=== PATIENT | female | born 1950 | race African-American/Black ===

== ENCOUNTER 2017-12-08 08:31 | Emergency (ER) | payer OTHER, MEDICAID ==
[~2017-12-08] VITALS: Ht 175.3 cm; Wt 80.0 kg
[2017-12-08] MEDS ORDERED: BENA20TA3 PO (09:13)
[2017-12-08] MEDS ORDERED: POTA10CA42 PO (09:13)
[2017-12-08] MEDS ORDERED: FAMO20TA8 PO (09:13)
[2017-12-08 09:59] LABS: BASOPHILS % 0.4 % (0.0-2.0); EOSINOPHILS % 1.3 % (0.0-5.0); HEMATOCRIT. 33.6 % (36.0-48.0); HEMOGLOBIN. 11.1 g/dL (12.0-16.0); LYMPHOCYTES % 20.4 % (20.0-50.0); MEAN CORPUSCULAR HEMOGLOBIN 25.3 pg (28.0-32.0); MEAN CORPUSCULAR VOLUME 76.9 fL (81.0-99.0); MEAN PLATELET VOLUME 8.8 fl (7.4-10.4); MONOCYTES % 6.7 % (2.0-8.0); NEUTROPHILS % 71.2 % (40.0-76.0); PLATELET 199 x1000/uL (130-400); RED BLOOD CELL COUNT 4.38 mill/uL (4.2-5.4); RED CELL DISTRIBUTION WIDTH 18.4 % (11.6-14.6)
[2017-12-08 10:02] LABS: CHLORIDE 108 mEq/L (98-107)
[2017-12-08 10:04] LABS: PROTHROMBIN TIME 10.8 sec (9.4-11.6)
[2017-12-08 10:51] VITALS: BP 146/88
== END 2017-12-08 12:12 | disposition home or self-care (01) ==
LOC: ER 09:16
DX: N93.8 Other specified abnormal uterine and vaginal bleeding (principal); F17.200 Nicotine dependence, unspecified, uncomplicated; E11.9 Type 2 diabetes mellitus without complications; I10 Essential (primary) hypertension
CPT/HCPCS: 36415; 76830; 76856; 80048; 85025; 85610; 99285

== ENCOUNTER 2022-04-16 20:06 | Emergency (ER) | payer OTHER, MEDICAID ==
[~2022-04-16] VITALS: Ht 165.1 cm; Wt 69.0 kg
[~2022-04-16 20:06] MED LIST: ASPI-1406 MT; BENA-8 PO; FAMO20TA8 PO; GLIP5TAB12 MT; MAGN400T26 MT; NIFE-32 MT; POTA10CA42 PO
[2022-04-16 23:48] LABS: BASOPHILS % 0.5 % (0.0-2.0); EOSINOPHILS % 0.2 % (0.0-5.0); HEMATOCRIT. 36.5 % (36.0-48.0); HEMOGLOBIN. 12.4 g/dL (12.0-16.0); LYMPHOCYTES % 9.2 % (20.0-50.0); MEAN CORPUSCULAR VOLUME 76.9 fL (81.0-99.0); MEAN PLATELET VOLUME 8.7 fl (7.4-10.4); MONOCYTES % 4.2 % (2.0-8.0); NEUTROPHILS % 85.9 % (40.0-76.0); PLATELET 174 x1000/uL (130-400); RED BLOOD CELL COUNT 4.75 mill/uL (4.2-5.4); RED CELL DISTRIBUTION WIDTH 18.5 % (11.6-14.6)
[2022-04-16 23:52] LABS: CHLORIDE 109 mEq/L (98-107)
[2022-04-17 00:02] LABS: B-HCG QUANTITATIVE 4 mIU/mL (<3)
[2022-04-17 00:30] VITALS: BP 150/89
== END 2022-04-17 00:30 | disposition home or self-care (01) ==
LOC: ER 20:06
DX: N95.0 Postmenopausal bleeding (principal); E11.9 Type 2 diabetes mellitus without complications; I10 Essential (primary) hypertension; F17.290 Nicotine dependence, other tobacco product, uncomplicated
CPT/HCPCS: 36415; 76830; 76856; 80053; 84702; 85025; 86850; 86900; 99284

== ENCOUNTER 2022-05-13 04:28 | Emergency (ER) | payer OTHER, MEDICAID ==
[~2022-05-13] VITALS: Ht 165.1 cm; Wt 80.0 kg
[2022-05-13] MEDS ORDERED: LACTULOSE 20G/30ML UDC PO ONE (07:45)
[2022-05-13 07:55] VITALS: BP 202/110
[2022-05-13] MEDS ORDERED: NA PHOS,M-B/NA PHOS,DI-BA ENEMA 118ML PR ONE (08:45)
[2022-05-13] MEDS ORDERED: POLY17PO3 MT (09:32)
[2022-05-13] MEDS ORDERED: BISA10SU62 RC (09:32)
[2022-05-13 09:40] LABS: CLARITY URINE CLEAR (CLEAR); COLOR URINE YELLOW (YELLOW); KETONES URINE NEGATIVE (NEGATIVE); LEUKOCYTE ESTERASE URINE 2+ (NEGATIVE); NITRITE URINE NEGATIVE (NEGATIVE); OCCULT BLOOD URINE TRACE (NEGATIVE); PROTEIN URINE 2+ (NEGATIVE); SPECIFIC GRAVITY URINE 1.014 (1.005-1.030); UROBILINOGEN URINE 0.2 E.U./dL (0.2-1.0)
[2022-05-13] MEDS ORDERED: NITR-87 MT (09:44)
== END 2022-05-13 10:05 | disposition home or self-care (01) ==
LOC: ER 04:28
DX: K59.00 Constipation, unspecified (principal); N39.0 Urinary tract infection, site not specified; I10 Essential (primary) hypertension; E78.00 Pure hypercholesterolemia, unspecified; E11.9 Type 2 diabetes mellitus without complications; Z79.899 Other long term (current) drug therapy; Z98.890 Other specified postprocedural states
CPT/HCPCS: 81003; 99283

== ENCOUNTER 2024-12-02 10:33 | Emergency (ER) | payer OTHER ==
[~2024-12-02] VITALS: Ht 162.6 cm; Wt 75.0 kg
[~2024-12-02 10:33] MED LIST changes: -BENA-8 PO; +BISA10SU62 RC; -GLIP5TAB12 MT; +GLIP5TAB22 MT; +METO-539 MT; +POLY17PO3 MT; -POTA10CA42 PO; +POTA10CA93 PO
[2024-12-02 10:45] VITALS: TEMP 36.5; O2SAT 99
[2024-12-02 10:48] VITALS: O2SAT 96
[2024-12-02 11:38] VITALS: BP 197/117; PULSE 115; RESP 18
[2024-12-02] MEDS: HYDROCODONE/ACETAMINOPHEN 5/325MG TABLET PO ONE (11:38)
[2024-12-02] MEDS ORDERED: IBUP-2029 MT (12:55)
== END 2024-12-02 14:07 | disposition home or self-care (01) ==
LOC: ER 10:33
DX: E11.9 Type 2 diabetes mellitus without complications (principal); M79.672 Pain in left foot; E78.00 Pure hypercholesterolemia, unspecified; I10 Essential (primary) hypertension; Z79.01 Long term (current) use of anticoagulants; Z79.82 Long term (current) use of aspirin; Z79.84 Long term (current) use of oral hypoglycemic drugs; Z79.899 Other long term (current) drug therapy
CPT/HCPCS: 73630; 99283

== ENCOUNTER 2025-04-08 14:38 | Emergency (ER) | payer OTHER, MEDICAID ==
[~2025-04-08] VITALS: Ht 157.5 cm; Wt 64.0 kg
[~2025-04-08 14:38] MED LIST changes: +IBUP-1455 MT
[2025-04-08 14:50] VITALS: O2SAT 100
[2025-04-08 15:28] LABS: BASOPHILS % 0.8 % (0.0-2.0); EOSINOPHILS % 1.7 % (0.0-5.0); HEMATOCRIT. 41.9 % (36.0-48.0); HEMOGLOBIN. 13.8 g/dL (12.0-16.0); LYMPHOCYTES % 27.0 % (20.0-50.0); MEAN PLATELET VOLUME 8.5 fl (7.4-10.4); MONOCYTES % 7.4 % (2.0-8.0); NEUTROPHILS % 63.1 % (40.0-76.0); PLATELET 189 x1000/uL (130-400); RED BLOOD CELL COUNT 5.28 mill/uL (4.2-5.4); RED CELL DISTRIBUTION WIDTH 17.5 % (11.6-14.6)
[2025-04-08 15:40] LABS: CREATININE 1.1 mg/dL (0.6-1.0)
[2025-04-08 15:41] LABS: UREA NITROGEN BLOOD 21.0 mg/dL (9-23)
[2025-04-08] MEDS: HYDRALAZINE 20MG/ML VIAL IV ONE (16:04)
[2025-04-08 17:07] LABS: TROPONIN I HIGH SENSITIVITY 9 ng/L (3.0-34)
[2025-04-08 17:15] VITALS: TEMP 36.9
[2025-04-08 17:39] LABS: INR 1.0
[2025-04-08] MEDS: NIFEDIPINE XL 60MG TAB PO ONE (18:01)
[2025-04-08] MEDS: METOPROLOL TARTRATE 50MG TABLET PO ONE (18:01)
[2025-04-08 19:32] VITALS: BP 188/64; PULSE 94; RESP 20; O2SAT 100
== END 2025-04-08 19:35 | disposition home or self-care (01) ==
LOC: ER 14:38 → CANBEDREQ 18:06 → ER 19:35
DX: I10 Essential (primary) hypertension (principal); E11.9 Type 2 diabetes mellitus without complications; E78.00 Pure hypercholesterolemia, unspecified; J45.909 Unspecified asthma, uncomplicated; Z79.01 Long term (current) use of anticoagulants; Z79.82 Long term (current) use of aspirin; Z79.84 Long term (current) use of oral hypoglycemic drugs; Z86.73 Personal history of transient ischemic attack (TIA), and cerebral infarction without residual deficits; Z91.148 Patient's other noncompliance with medication regimen for other reason
CPT/HCPCS: 99285; 96374; 70450; 71045; 80048; 83880; 85025; 85610; 85730; 84484; 36415; 93005; J0360